=== PATIENT | male | born 1990 | race Caucasian/White ===

== ENCOUNTER 2016-12-21 02:35 | Emergency (ER) | payer OTHER ==
[~2016-12-21] VITALS: Ht 190.5 cm; Wt 117.3 kg
[2016-12-21 02:50] VITALS: TEMP 36.7; Ht 190.5 cm; Wt 117.3 kg
[2016-12-21] MEDS ORDERED: CYM/30 PO (02:57)
--- NOTE | 2016-12-21 03:36 | EMERGENCY ROOM VISIT NOTE ---
History First contact with patient: 03:27 Chief Complaint: ALCOHOL OVERDOSE Stated Complaint: ALCOHOL OVERDOSE Nursing Triage Summary: patient brought in by ems patient found by pd stumbling downtown patient did not have a sober friend patient friend reports patient was in UBER with them and patient got out History of Present Illness The patient is a 26 year old male who presents to the Emergency Room via EMS with concerns for intoxication. Patient was found downtown stumbling around, unable to locate a sober friend, so he was brought to the emergency department. Patient denies any injuries or complaints. Review of Systems Limited ROS due to intoxication. Social History Smoking Status: Light Tobacco Smoker Current/Historical Medications Scheduled Duloxetine HCl (Cymbalta), 90 MG PO DAILY Physical Exam Vital Signs Date Time Temp Pulse Resp B/P (MAP) Pulse Ox O2 Delivery O2 Flow Rate FiO2 12/21/16 03:42 128 18 130/114 96 12/21/16 02:50 36.7 130 18 131/92 98 Room Air 12/21/16 02:49 135 Physical Exam VITALS - Vitals are noted on the nurse's note and reviewed by myself. Vital signs stable. GENERAL -alert and cooperative, in no acute distress, non-diaphoretic, well- developed well-nourished. The patient is visibly intoxicated. SKIN - The skin was without obvious lacerations, abrasions, or rashes. There is no tenting of the skin. Capillary reflex less than 2 seconds. HEENT - Normocephalic, atraumatic. PERRLA. EOMI. Conjunctiva with mild injection without icterus. Tympanic membranes without erythema or effusion bilaterally no hemotympanum. External auditory canals are clear. Nares patent bilaterally. No epistaxis. Oropharynx without erythema or exudate. Uvula midline. Oral mucosal moist. No lymphadenopathy. Neck is supple without cervical spine tenderness. HEART - Regular rate and rhythm without murmurs gallops or rubs. Peripheral pulses 2+. LUNGS - Clear to auscultation bilaterally without wheezes, rales or rhonchi. ABDOMEN - Positive bowel sounds x 4. Normal tympanic percussion. Soft, nontender, without masses or organomegaly. MUSCULOSKELETAL - Gross motor function of the upper and lower extremities intact. NEUROLOGIC - The patient is visibly intoxicated. Medical Decision & Procedures Laboratory Results Medical Decision On my initial evaluation of the patient, he is noted to have 2 sober friends at bedside who are willing to take him home. I discussed this with the patient and he is comfortable going home with these friends. Patient is alert and functionally ambulatory. No acute distress. He was deemed appropriate for discharge in the care of his sober friends. He was encouraged to refrain from any further heavy drinking. Patient was discharged home in stable condition and ambulatory.. Impression Primary Impression: Alcoholic intoxication Departure Information Dispostion Home / Self-Care Condition GOOD Patient Instructions ED Alcohol Intoxication, My [facility] Additional Instructions Do not drink any further alcohol today and avoid such excessive drinking in the future. Drink plenty of fluids today to stay hydrated. Follow-up with your PCP as needed. Problem Qualifiers Primary Impression: Alcoholic intoxication Complication of substance-induced condition: uncomplicated Qualified Codes: F10.920 - Alcohol use, unspecified with intoxication, uncomplicated
[2016-12-21 03:42] VITALS: BP 130/114; PULSE 128; O2SAT 96
== END 2016-12-21 03:43 | disposition home or self-care (01) ==
LOC: C.EDC 02:37
DX: F10.920 Alcohol use, unspecified with intoxication, uncomplicated (principal); F17.210 Nicotine dependence, cigarettes, uncomplicated; Z79.899 Other long term (current) drug therapy